=== PATIENT | male | born 1950 | race Caucasian/White ===

== ENCOUNTER 2022-01-02 18:24 | Emergency (ER) | payer MEDICARE ==
[~2022-01-02] VITALS: Ht 170.2 cm; Wt 96.4 kg
[~2022-01-02 18:24] MED LIST: AMIO200T67 PO; ASCO500C18 PO; ASPI81TA53 PO; ATOR10TA PO; HYDR-3972 PO; KRIL1CAP21 PO; LOP12.5T PO; UBID200C18 PO
[2022-01-02 18:29] VITALS: BP 157/82
[2022-01-02 18:58] LABS: BASOPHILS # (AUTO) 0.1 X10'3 (0-0.2); EOSINOPHILS # (AUTO) 0.2 X10'3 (0-0.9); EOSINOPHILS % (AUTO) 2.4 % (0-6); HEMATOCRIT 41.2 % (42.0-52.0); HEMOGLOBIN 14.3 g/dl (14.0-17.9); LYMPHOCYTES # (AUTO) 1.8 X10'3 (1.1-4.8); LYMPHOCYTES % (AUTO) 21.8 % (21-51); MEAN CORPUSCULAR HEMOGLOBIN 32.4 PG (27.0-31.0); MEAN CORPUSCULAR HGB CONC 34.8 g/dL (33.0-36.5); MEAN CORPUSCULAR VOLUME 93.1 FL (78-98); MEAN PLATELET VOLUME 8.2 FL (7.4-10.4); MONOCYTES # (AUTO) 0.7 X10'3 (0-0.9); MONOCYTES % (AUTO) 8.8 % (2-12); NEUTROPHILS # (AUTO) 5.4 X10'3 (1.8-7.7); PLATELET COUNT 467 X10'3 (140-440); RED BLOOD COUNT 4.42 X10'6 (4.70-6.10); RED CELL DISTRIBUTION WIDTH 13.1 % (11.5-14.5); WHITE BLOOD COUNT 8.2 X10'3 (4.5-11.0)
[2022-01-02 19:16] LABS: ALANINE AMINOTRANSFERASE 42 U/L (12-78); ALBUMIN 3.3 G/DL (3.4-5.0); ALBUMIN/GLOBULIN RATIO 0.8 (1.1-1.5); ALKALINE PHOSPHATASE 107 IU/L (46-116); ANION GAP 8 (8-16); BILIRUBIN,TOTAL 0.4 MG/DL (0.1-1.0); BLOOD UREA NITROGEN 21 MG/DL (7-18); BUN/CREATININE RATIO 17.8 (5.4-32.0); CALCIUM 9.5 MG/DL (8.5-10.1); CHLORIDE 101 MMOL/L (99-107); CREATININE 1.18 MG/DL (0.60-1.10); GLUCOSE 114 MG/DL (70-104); SODIUM 137 MMOL/L (135-145); TOTAL CARBON DIOXIDE 28.2 MMOL/L (24-32); TOTAL PROTEIN 7.3 G/DL (6.4-8.2); eGFR 61 ML/MIN
[2022-01-02 19:24] LABS: ASPARTATE AMINO TRANSFERASE 32 U/L (10-37); POTASSIUM 3.8 MMOL/L (3.5-5.1)
== END 2022-01-02 22:55 | disposition home or self-care (01) ==
LOC: ER 18:24
DX: I15.9 Secondary hypertension, unspecified (principal); R42 Dizziness and giddiness; R00.2 Palpitations; Z79.899 Other long term (current) drug therapy
CPT/HCPCS: 36415; 71045; 80053; 83735; 83880; 84484; 85025; 93005; 99285

== ENCOUNTER 2023-02-01 14:12 | Emergency (ER) | payer MEDICARE ==
[~2023-02-01] VITALS: Ht 170.2 cm; Wt 89.1 kg
[2023-02-01 14:17] VITALS: BP 199/82; PULSE 89; RESP 16; O2SAT 100
[2023-02-01 14:36] LABS: BASOPHILS # (AUTO) 0.1 X10'3 (0-0.2); BASOPHILS % (AUTO) 0.8 % (0-1); EOSINOPHILS # (AUTO) 0.1 X10'3 (0-0.9); EOSINOPHILS % (AUTO) 0.8 % (0-6); HEMATOCRIT 47.3 % (42.0-52.0); HEMOGLOBIN 16.5 g/dl (14.0-17.9); LYMPHOCYTES # (AUTO) 3.3 X10'3 (1.1-4.8); LYMPHOCYTES % (AUTO) 32.9 % (21-51); MEAN CORPUSCULAR HEMOGLOBIN 32.5 PG (27.0-31.0); MEAN CORPUSCULAR HGB CONC 34.8 g/dL (33.0-36.5); MEAN CORPUSCULAR VOLUME 93.3 FL (78-98); MONOCYTES # (AUTO) 0.5 X10'3 (0-0.9); MONOCYTES % (AUTO) 5.3 % (2-12); NEUTROPHILS # (AUTO) 5.9 X10'3 (1.8-7.7); NEUTROPHILS % (AUTO) 60.2 % (42-75); PLATELET COUNT 246 X10'3 (140-440); RED BLOOD COUNT 5.07 X10'6 (4.70-6.10); RED CELL DISTRIBUTION WIDTH 13.1 % (11.5-14.5); WHITE BLOOD COUNT 9.9 X10'3 (4.5-11.0)
[2023-02-01 14:48] LABS: ALANINE AMINOTRANSFERASE 41 U/L (12-78); ALBUMIN/GLOBULIN RATIO 1.2 (1.1-1.5); ALKALINE PHOSPHATASE 65 IU/L (46-116); ANION GAP 8 (8-16); ASPARTATE AMINO TRANSFERASE 30 U/L (10-37); BILIRUBIN,TOTAL 0.7 MG/DL (0.1-1.0); BLOOD UREA NITROGEN 18 MG/DL (7-18); BUN/CREATININE RATIO 12.7 (10.0-20.0); CALCIUM 9.5 MG/DL (8.5-10.1); CHLORIDE 102 MMOL/L (99-107); CREATININE 1.42 MG/DL (0.60-1.10); GLUCOSE 153 MG/DL (70-104); POTASSIUM 3.4 MMOL/L (3.5-5.1); SODIUM 138 MMOL/L (135-145); TOTAL CARBON DIOXIDE 28.5 MMOL/L (24-32); TOTAL PROTEIN 7.4 G/DL (6.4-8.2); eCRCL 45 ML/MIN; eGFR 49 ML/MIN
[2023-02-01 14:55] LABS: PRO BRAIN NATRIURETIC PEPTIDE 157 PG/ML (0-125)
[2023-02-01] MEDS ORDERED: LORazepam 0.5 MG tablet PO ONE (17:50)
[2023-02-01] MEDS ORDERED: HYDR50CA PO (18:00)
[2023-02-01 18:14] VITALS: TEMP 98.6
== END 2023-02-01 18:16 | disposition home or self-care (01) ==
LOC: ER 14:12
DX: F41.9 Anxiety disorder, unspecified (principal); I10 Essential (primary) hypertension; Z79.899 Other long term (current) drug therapy; Z79.1 Long term (current) use of non-steroidal anti-inflammatories (NSAID); Z79.2 Long term (current) use of antibiotics
CPT/HCPCS: 36415; 71045; 80053; 83880; 84484; 85025; 93005; 99285

== ENCOUNTER 2024-02-29 12:40 | Emergency (ER) | payer MEDICARE ==
[~2024-02-29] VITALS: Ht 170.2 cm; Wt 86.4 kg
[~2024-02-29 12:40] MED LIST changes: +HYDR50CA PO
[2024-02-29 12:49] VITALS: TEMP 98.1
[2024-02-29 13:39] LABS: BASOPHILS # (AUTO) 0.1 X10'3 (0-0.2); EOSINOPHILS % (AUTO) 0.3 % (0-6); HEMATOCRIT 47.2 % (42.0-52.0); HEMOGLOBIN 16.6 g/dl (14.0-17.9); LYMPHOCYTES # (AUTO) 2.8 X10'3 (1.1-4.8); MEAN CORPUSCULAR HEMOGLOBIN 32.4 PG (27.0-31.0); MEAN CORPUSCULAR HGB CONC 35.1 g/dL (33.0-36.5); MEAN CORPUSCULAR VOLUME 92.2 FL (78-98); MEAN PLATELET VOLUME 9.1 FL (7.4-10.4); MONOCYTES # (AUTO) 0.6 X10'3 (0-0.9); MONOCYTES % (AUTO) 6.2 % (2-12); NEUTROPHILS # (AUTO) 6.1 X10'3 (1.8-7.7); NEUTROPHILS % (AUTO) 63.5 % (42-75); PLATELET COUNT 225 X10'3 (140-440); RED BLOOD COUNT 5.11 X10'6 (4.70-6.10); RED CELL DISTRIBUTION WIDTH 13.1 % (11.5-14.5); WHITE BLOOD COUNT 9.6 X10'3 (4.5-11.0)
[2024-02-29 13:52] LABS: APTT 25 SECONDS (22-32); INR 1.1 INR; PROTHROMBIN TIME 11.3 SECONDS (9.0-12.0)
[2024-02-29 13:55] LABS: ALANINE AMINOTRANSFERASE 55 U/L (12-78); ALBUMIN 3.9 G/DL (3.4-5.0); ALKALINE PHOSPHATASE 70 IU/L (46-116); ANION GAP 11 (8-16); ASPARTATE AMINO TRANSFERASE 31 U/L (10-37); BILIRUBIN,TOTAL 0.9 MG/DL (0.1-1.0); BLOOD UREA NITROGEN 24 MG/DL (7-18); BUN/CREATININE RATIO 21.6 (10.0-20.0); CALCIUM 9.6 MG/DL (8.5-10.1); CHLORIDE 102 MMOL/L (99-107); CREATININE 1.11 MG/DL (0.60-1.10); GLUCOSE 115 MG/DL (70-104); POTASSIUM 3.9 MMOL/L (3.5-5.1); SODIUM 138 MMOL/L (135-145); TOTAL CARBON DIOXIDE 25.1 MMOL/L (24-32); TOTAL PROTEIN 7.7 G/DL (6.4-8.2); eCRCL 57 ML/MIN; eGFR 65 ML/MIN
[2024-02-29 14:04] LABS: FREE T4 (FREE THYROXINE) 1.19 NG/DL (0.73-1.40); LIPASE 72 U/L (16-77); PRO BRAIN NATRIURETIC PEPTIDE 78 PG/ML (0-125)
[2024-02-29] MEDS ORDERED: SUCR1TAB PO (16:32)
[2024-02-29 16:34] VITALS: BP 137/86; PULSE 71; RESP 14; O2SAT 98
== END 2024-02-29 16:37 | disposition home or self-care (01) ==
LOC: ER 12:41
DX: K29.00 Acute gastritis without bleeding (principal); R10.13 Epigastric pain; I10 Essential (primary) hypertension; I25.2 Old myocardial infarction; Z95.1 Presence of aortocoronary bypass graft; Z79.899 Other long term (current) drug therapy; Z79.82 Long term (current) use of aspirin; Z72.89 Other problems related to lifestyle
CPT/HCPCS: 36415; 71045; 74176; 80053; 83690; 83880; 84439; 84443; 84484; 85025; 85610; 85730; 93005; 99285

== ENCOUNTER 2024-05-19 11:51 | Emergency (ER) | payer MEDICARE ==
[~2024-05-19] VITALS: Ht 182.9 cm; Wt 92.0 kg
[~2024-05-19 11:51] MED LIST changes: +SUCR1TAB PO
[2024-05-19] MEDS: normal saline 1000ml 1,000 ML IV ONE (12:27)
[2024-05-19] MEDS: diphenhydrAMINE 50 mg/ml inj IV ONE (12:29)
[2024-05-19 12:49] LABS: BASOPHILS # (AUTO) 0.1 X10'3 (0-0.2); BASOPHILS % (AUTO) 0.9 % (0-1); EOSINOPHILS % (AUTO) 0.4 % (0-6); HEMATOCRIT 44.5 % (42.0-52.0); HEMOGLOBIN 15.5 g/dl (14.0-17.9); LYMPHOCYTES # (AUTO) 2.8 X10'3 (1.1-4.8); LYMPHOCYTES % (AUTO) 36.1 % (21-51); MEAN CORPUSCULAR HEMOGLOBIN 32.3 PG (27.0-31.0); MEAN CORPUSCULAR HGB CONC 34.9 g/dL (33.0-36.5); MEAN CORPUSCULAR VOLUME 92.5 FL (78-98); MEAN PLATELET VOLUME 8.9 FL (7.4-10.4); MONOCYTES # (AUTO) 0.5 X10'3 (0-0.9); MONOCYTES % (AUTO) 6.8 % (2-12); NEUTROPHILS # (AUTO) 4.3 X10'3 (1.8-7.7); NEUTROPHILS % (AUTO) 55.8 % (42-75); PLATELET COUNT 246 X10'3 (140-440); RED BLOOD COUNT 4.81 X10'6 (4.70-6.10); RED CELL DISTRIBUTION WIDTH 12.9 % (11.5-14.5); WHITE BLOOD COUNT 7.7 X10'3 (4.5-11.0)
[2024-05-19 12:55] LABS: ALANINE AMINOTRANSFERASE 42 U/L (12-78); ALBUMIN 3.8 G/DL (3.4-5.0); ALBUMIN/GLOBULIN RATIO 1.2 (1.1-1.5); ALKALINE PHOSPHATASE 66 IU/L (46-116); ANION GAP 11 (8-16); ASPARTATE AMINO TRANSFERASE 27 U/L (10-37); BILIRUBIN,TOTAL 0.9 MG/DL (0.1-1.0); BLOOD UREA NITROGEN 17 MG/DL (7-18); CALCIUM 9.1 MG/DL (8.5-10.1); CHLORIDE 104 MMOL/L (99-107); CREATININE 1.06 MG/DL (0.60-1.10); GLUCOSE 99 MG/DL (70-104); POTASSIUM 3.7 MMOL/L (3.5-5.1); SODIUM 141 MMOL/L (135-145); TOTAL CARBON DIOXIDE 26.3 MMOL/L (24-32); eCRCL 69 ML/MIN; eGFR 69 ML/MIN
[2024-05-19 13:04] LABS: LIPASE 64 U/L (16-77); MAGNESIUM 1.8 MG/DL (1.5-2.4); PRO BRAIN NATRIURETIC PEPTIDE 106 PG/ML (0-125)
[2024-05-19 13:07] LABS: ETHANOL < 10 MG/DL (<10)
[2024-05-19] MEDS ORDERED: DICY10CA88 PO (14:32)
[2024-05-19 14:48] VITALS: BP 124/57; PULSE 57; RESP 12; TEMP 98.2; O2SAT 100
[2024-05-19] MEDS: dicyclomine 10 MG capsule PO ONE (14:48)
== END 2024-05-19 14:58 | disposition home or self-care (01) ==
LOC: ER 11:51
DX: F41.0 Panic disorder [episodic paroxysmal anxiety] (principal); R10.9 Unspecified abdominal pain; R00.2 Palpitations; I10 Essential (primary) hypertension; Z87.19 Personal history of other diseases of the digestive system; Z79.82 Long term (current) use of aspirin; Z95.1 Presence of aortocoronary bypass graft
CPT/HCPCS: 36415; 71045; 80053; 83690; 83735; 83880; 84484; 85025; 93005; 96361; 96374; 99285; G0480; J1200; J7030; 80320

== ENCOUNTER 2024-07-17 06:28 | Day surgery (SDC) | payer MEDICARE ==
[2024-07-17] VITALS (10 sets, daily range): BP systolic 104–148; BP diastolic 58–90; PULSE 43–51; RESP 10–17; O2SAT 97–100
[~2024-07-17] VITALS: Ht 170.2 cm; Wt 85.0 kg
[~2024-07-17 06:28] MED LIST changes: -AMIO200T67 PO; -ASCO500C18 PO; +ASPI-611 PO; -ASPI81TA53 PO; -ATOR10TA PO; +ATOR10TA87 PO; +ESCI5TAB17 PO; -HYDR-3972 PO; -HYDR50CA PO; -LOP12.5T PO; +LOP25T PO; +OMEP20CA16 PO; -SUCR1TAB PO; +TAMSULOSIN
[2024-07-17] MEDS ORDERED: fentaNYL/PF 50MCG/1 ML 2ML syringe ONE (07:13)
[2024-07-17] MEDS ORDERED: MIDAZolam 1 MG/ML 5ML VIAL ONE (07:13)
[2024-07-17] MEDS ORDERED: simethicone 40mg/0.6ml oral drops 30ml ONE (07:20)
== END 2024-07-17 08:18 | disposition home or self-care (01) ==
LOC: GI LAB 06:28
PROVIDERS: ATTEND Internal Medicine Gastroenterology
DX: K92.1 Melena (principal); K57.30 Diverticulosis of large intestine without perforation or abscess without bleeding; K64.1 Second degree hemorrhoids
CPT/HCPCS: 45378; A4620; G0500; J2250; J3010; J7030; Z7512; 99152; 99153

== ENCOUNTER 2024-09-22 23:16 | Emergency (ER) | payer MEDICARE ==
[~2024-09-22] VITALS: Ht 170.2 cm; Wt 90.1 kg
[2024-09-22 23:33] VITALS: TEMP 97.5
--- NOTE | 2024-09-22 23:42 | ELECTROCARDIOGRAPH REPORT ---
[facility] Test Date: 2024-09-22 Test Time: 23:20:29 Pat Name: ELIZABETH ANTHONY Department: EMERGENCY ROOM Room: Gender: M [employer]: DT : 1950 Requested By: DESMOND ROGERS Order Number: [id number] Reading MD: Measurements Intervals [place] Rate: 54 P: 77 AL: 186 QRS: 101 QRSD: 96 T: 58 QT: 424 QTc: 402 Interpretive Statements Sinus bradycardia Multiple ventricular premature complexes Probable left atrial enlargement Right axis deviation Probable anteroseptal infarct, old Please click the below link to view image of tracing.
--- NOTE | 2024-09-23 00:18 | RADIOLOGY REPORT ---
Procedure: DI CHEST,SINGLE VIEW 09/22/2024 11:59 PM Indication: CP Comparison: DI CHEST,SINGLE VIEW on DOS: 05/19/24, DI CHEST,SINGLE VIEW on DOS: 02/29/24, DI CHEST,SING LE VIEW on DOS: 08/08/23, DI CHEST,SINGLE VIEW on DOS: 02/01/23, CHEST,SINGLE VIEW on DOS: 01/02/22 TECHNIQUE: DI CHEST,SINGLE VIEW FINDINGS/IMPRESSION: The lungs are clear. Unremarkable cardiomediastinal silhouette. Median sternotomy changes are noted . No pleural effusion or pneumothorax. No acute osseous abnormality.
[2024-09-23 00:23] LABS: MEAN PLATELET VOLUME 9.3 FL (7.4-10.4); RED CELL DISTRIBUTION WIDTH 13.1 % (11.5-14.5)
[2024-09-23 00:26] LABS: CREATININE 1.22 MG/DL (0.60-1.10); PRO BRAIN NATRIURETIC PEPTIDE 191 PG/ML (0-125); TOTAL CARBON DIOXIDE 29.8 MMOL/L (24-32); eCRCL 51 ML/MIN; eGFR 58 ML/MIN
--- NOTE | 2024-09-23 01:31 | Physician Documentation ---
History of Present Illness ~ Chief Complaint: Palpitations Stated Complaint: PALPITATIONS Time Seen by MD: 00:09 Primary Medical Doctor: Lilly Velázquez Mode of Arrival: POV HPI 74-year-old male presenting with palpitations. He reports a history of CAD and a CABG. He has been on metoprolol 25 mg b.i.d. until about 1 week ago when they decreased it is 12.5 mg twice a day. This is done because his heart rate has been running slow although he was asymptomatic. Today, he reports feeling palpitations. He tells me that it feels like his heart is skipping a beat. This is happening frequently. Earlier in the day he did exercise, including playing golf going to the gym and doing cardio. During that time he felt well, did not feel any palpitations, shortness of breath or chest pain. No dizziness, syncope, chest pain, nausea, vomiting, abdominal pain, leg pain or swelling Medication Reconciliation Allergies: Coded Allergies: No Known Allergies (Unverified , 09/22/24) Scheduled Aspirin (Aspir 81), 1 TAB PO DAILY, (Reported) Atorvastatin Calcium* (Lipitor*), 1 TAB PO DAILY, (Reported) Escitalopram Oxalate (Escitalopram Oxalate), 1 TAB PO DAILY, (Reported) Krill/Om-3/Dha/Epa/Phospho/Ast (Megared [place]-3 Krill Oil Sfgl), 1 CAP PO DAILY, (Reported) Metoprolol Tartrate* (Lopressor tablet*), 0.5 TAB PO Q12H, (Reported) Omeprazole (Omeprazole), 1 CAP PO DAILY, (Reported) Ubidecarenone (Co Q-10), 0 PO DAILY, (Reported) Miscellaneous Medications [Tamsulosin], (Reported) Past Medical History Past Medical History: *CARDIOVASCULAR*, Hypertension, Myocardial Infarction, Gastritis Past Surgical History: coronary bypass surgery Smoking Status: Never smoker Alcohol Use: Occasionally Drug Use: none Lives with: Spouse Lives In: Home Review of Systems Cardiovascular: Reports: palpitations; Denies: chest pain, lightheadedness Physical Exam Vital Signs: Temperature: 97.5, Source: Oral, Heart Rate: 59, Respiratory Rate: 16, BP: 147/73, Pulse Oximetry: 100, Weight: 90.100 Oxygen Flow Rate: 0 Physical Exam General: This is a pleasant and quite healthy appearing older man, at bedside HEENT: Atraumatic, oropharynx is moist Heart: The patient appears to be in a regular rate and rhythm with frequent PVCs, no audible murmur,, normal-appearing peripheral perfusion Lungs: Clear breath sounds bilateral, normal work of breathing, normal oxygen saturation on room air Extremities: Warm and well-perfused, no edema or posterior calf tenderness Neuro: Alert and oriented, no focal deficits Psychiatric: Calm and cooperative with exam Progress Results/Orders Results/Orders Orders - DESMOND ROGERS MD Chest,Single View (09/22/24 23:40) Monitor (09/22/24 23:40) Saline Lock (09/22/24 23:40) Oxygen (09/22/24 23:40) Completed Orders - DESMOND ROGERS MD Chest,Single View (09/22/24 23:40) Cbc/Diff (09/22/24 23:40) BMP (09/22/24 23:40) PBNP (09/22/24 23:40) Electrocardiogram (09/22/24 23:40) Hs Troponin I W Calculations (09/22/24 23:40) Hs Troponin I W Calculations (09/23/24 01:40) MG (09/23/24 01:30) TSH (09/23/24 01:30) Vital Signs 09/22/24 09/22/24 09/23/24 23:33 23:57 02:16 Temp 97.5 Pulse 59 52 Resp 18 16 14 B/P (MAP) 147/73 129/57 (81) Pulse Ox 100 98 O2 Flow Rate 0 0 Laboratory Tests Test 09/22/24 23:55 09/23/24 01:33 White Blood Count 9.0 Red Blood Count 4.92 Hemoglobin 15.9 Hematocrit 44.7 Mean Corpuscular Volume 91.0 Mean Corpuscular Hemoglobin 32.3 H Mean Corpuscular Hemoglobin Concent 35.5 Red Cell Distribution Width 13.1 Platelet Count 187 Mean Platelet Volume 9.3 Neutrophils (%) (Auto) 41.4 L Lymphocytes (%) (Auto) 46.6 Monocytes (%) (Auto) 9.4 Eosinophils (%) (Auto) 1.5 Basophils (%) (Auto) 1.1 H Neutrophils # (Auto) 3.7 Lymphocytes # (Auto) 4.2 Monocytes # (Auto) 0.8 Eosinophils # (Auto) 0.1 Basophils # (Auto) 0.1 CBC Comment Sodium Level 136 Potassium Level 3.8 Chloride Level 100 Carbon Dioxide Level 29.8 Anion Gap 6 L Blood Urea Nitrogen 19 H Creatinine 1.22 H Estimated GFR/1.73 m2 58 BUN/Creatinine Ratio 15.6 Glucose Level 106 H Calcium Level 9.3 Troponin I High Sensitivity 18 16 Pro-B-Type Natriuretic Peptide 191 H Albumin 4.0 Chemistry Comments Magnesium Level 2.1 Troponin I High Sens Percent Delta 11 Troponin I Hi Sens Absolute Change -2 Thyroid Stimulating Hormone (TSH) 3.20 EKG/XRAY/CT/US/VASC/MRI EKG : Additional Comment I personally interpreted the EKG and this shows: Sinus bradycardic, rate 54, QTC 402, occasional PVCs, no STEMI or acute ischemic changes Chest X-Ray : Additional Comments I personally reviewed the x-ray, and it shows: Prior sternotomy, no focal consolidation, no pulmonary edema Medical Decision Making Differential Dx:Considerations: Include: angina / NM, atrial dysrhythmia, atrial fibrillation, PACs, PSVT, sinus tachycardia, PVCs Differential Dx:Considerations: Include anxiety/panic attack, Include electrolyte disorder, Include hyperthyroidism, Include renal failure Assessment The patient presents with palpitations, and is found to have frequent PVCs on the preservationist. EKG also shows PVCs but no other dangerous findings. His workup was unremarkable including normal electrolytes and thyroid function. Overall, it seems possible that his PVCs have been unmasked by the decrease of his metoprolol dose. He is bradycardic, but seemed to tolerate the higher dose of metoprolol in the past in spite of the bradycardia. After shared decision- making conversation we decided to proceed with a trial of increased metoprolol to see if this helps with his symptoms. If he feels worse, has dizziness, alicia ting or hypotension he will decrease back to his current dose. He will contact his cardiology clinic on Wednesday to discuss further treatment or medication adjustments. Return precautions given. Departure Time of Disposition: 02:14 Disposition: 01 HOME / SELF CARE / HOMELESS Impression: Primary Impression: Ventricular premature beats Condition: Stable Discharge Instructions: Premature Ventricular Contraction Referrals: NO PRIMARY CARE PROVIDER (PCP) Education Educated: Patient, Family Educated regarding: diagnosis, treatment, need for follow up Signature Scribe Signature: na Attestation: DESMOND Avalos MD Sep 23, 2024 01:31
[2024-09-23 02:16] VITALS: BP 129/57; PULSE 52; RESP 14; O2SAT 98
== END 2024-09-23 02:27 | disposition home or self-care (01) ==
LOC: ER 23:16
DX: I49.3 Ventricular premature depolarization (principal); R06.02 Shortness of breath; I10 Essential (primary) hypertension; I25.10 Atherosclerotic heart disease of native coronary artery without angina pectoris; I25.2 Old myocardial infarction; Z95.1 Presence of aortocoronary bypass graft; Z79.82 Long term (current) use of aspirin
CPT/HCPCS: 36415; 71045; 80048; 83735; 83880; 84443; 84484; 85025; 93005; 99285